=== PATIENT | female | born 1965 | race Caucasian/White ===

== ENCOUNTER 2016-12-06 09:34 | Emergency (ER) | payer OTHER ==
[2016-12-06 09:46] VITALS: BP 138/100; PULSE 83; TEMP 99.1; BMI 21.7
[2016-12-06] MEDS ORDERED: IBUPROFEN 600 MG TABLET (FP) PO ONE ×2 (10:32→10:38)
--- NOTE | 2016-12-06 11:31 | PDOC ---
History of Present Illness - General Chief Complaint: Cold Symptoms Stated Complaint: FLU LIKE SYMPTOMS Time Seen by Provider: 12/06/16 10:22 History Source: Patient Exam Limitations: No Limitations Past History - Past Medical History Allergies/Adverse Reactions: Allergies Allergy/AdvReac Type Severity Reaction Status Date / Time No Known Allergies Allergy Verified 12/06/16 09:44 Home Medications: Ambulatory Orders Amoxicillin - [Amoxicillin 875mg Tablet -] 875 mg PO BID #20 tablet 12/06/16 Fluticasone Prop 0.05% Nasal [Flonase -] 1 - 2 spray NS DAILY #1 spray.pump Ibuprofen 800 mg PO TID PRN #20 tablet 12/06/16 GI Disorders: Yes (ACID REFLUX) - Surgical History Lung Surgery: Yes (SPONTANEOUS PNEUMO.) - Psycho/Social/Smoking Cessation Hx Anxiety: No Suicidal Ideation: No Smoking Status: Yes Smoking History: Current every day smoker Have you smoked in the past 12 months: Yes Number of Cigarettes Smoked Daily: 20 Information on smoking cessation initiated: No 'Breaking Loose' booklet given: 06/21/16 Hx Alcohol Use: No Drug/Substance Use Hx: No Substance Use Type: None *Physical Exam - Vital Signs Last Vital Signs Temp Pulse Resp BP Pulse Ox 99.1 F 83 20 138/100 99 12/06/16 09:39 12/06/16 09:39 12/06/16 09:39 12/06/16 09:39 12/06/16 09:39 - Physical Exam General Appearance: Yes: Nourished, Appropriately Dressed HEENT: positive: EOMI, LEN, TMs Normal, Pharyngeal Erythema, Nasal Congestion, Sinus Tenderness Neck: positive: Supple. negative: Lymphadenopathy (R), Lymphadenopathy (L) Respiratory/Chest: positive: Lungs Clear, Normal Breath Sounds Cardiovascular: positive: Regular Rhythm, Regular Rate Musculoskeletal: positive: Normal Inspection Extremity: positive: Normal Capillary Refill, Normal Inspection, Normal Range of Motion Integumentary: positive: Normal Color, Dry, Warm Neurologic: positive: Fully Oriented, Alert, Normal Mood/Affect, Normal Response , Motor Strength 5/5 ED Treatment Course - ADDITIONAL ORDERS Additional order review: 12/06/16 10:32 Group A Strep Rapid Antigen - Final Throat - Medications Given in the ED: ED Medications Discontinued Medications Generic Name Dose Route Start Last Admin Trade Name Freq PRN Reason Stop Dose Admin Ibuprofen 600 mg 12/06/16 10:32 12/06/16 10:45 Motrin - PO 12/06/16 10:33 600 mg ONCE ONE Administration Medical Decision Making - Medical Decision Making 12/06/16 11:38 cc: sinus pressure, headache nasal discharge, sore throat will check for strep most likely acute sinusitus, OTC meds not helping, pt is a smoker states thick nasal discharge *DC/Admit/Observation/Transfer Diagnosis at time of Disposition: Sinusitis Qualifiers: Sinusitis location: frontal Chronicity: acute Recurrence: non-recurrent Qualified Code(s): J01.10 - Acute frontal sinusitis, unspecified - Discharge Dispostion Disposition: HOME Condition at time of disposition: Good - Prescriptions Prescriptions: Amoxicillin - [Amoxicillin 875mg Tablet -] 875 mg PO BID #20 tablet Fluticasone Prop 0.05% Nasal [Flonase -] 1 - 2 spray NS DAILY #1 spray.pump Ibuprofen 800 mg PO TID PRN #20 tablet PRN Reason: Fever Or Pain - Referrals Referrals: Lux Kim MD [Primary Care Provider] - Brandon Acharya MD [Staff Physician] - - Patient Instructions Additional Instructions: take Amoxicllin as directed for sinus infection use flonase nasal spray to help with sinus pressure and congestion (do not use if it makes your headache worse) take ibuprofen 800mg every 6-8hrs for pain, chills body aches follow with the ENT doctor if any worsening symptoms
== END 2016-12-06 11:30 | disposition home or self-care (01) ==
LOC: JERFT 09:34 → JER 09:34 → JERFT 11:30
DX: J01.10 Acute frontal sinusitis, unspecified (principal); F17.210 Nicotine dependence, cigarettes, uncomplicated; K21.9 Gastro-esophageal reflux disease without esophagitis
CPT/HCPCS: 87070; 87430; 99281-25

== ENCOUNTER 2017-01-11 13:33 | Emergency (ER) | payer OTHER ==
[2017-01-11 13:51] VITALS: BMI 23.8
[2017-01-11 14:44] LABS: BASOPHIL 0.7 % (0-2.0); EOSINOPHIL 1.5 % (0-4.5); MCH 34.2 pg (25.7-33.7); MEAN CELL VOLUME 100.4 fl (80-96); MEAN PLT VOLUME 8.3 fl (7.5-11.1); NEUTROPHILS 68.4 % (42.8-82.8); PLATELET COUNT 214 K/MM3 (134-434); RDW 13.2 % (11.6-15.6); WHITE BLOOD COUNT 9.9 K/mm3 (4.0-10.0)
--- NOTE | 2017-01-11 15:01 | EKG ---
Test Reason : Blood Pressure : / mmHG Vent. Rate : 070 BPM Atrial Rate : 070 BPM P-R Int : 148 ms QRS Dur : 122 ms QT Int : 428 ms P-R-T Axes : 071 -39 020 degrees QTc Int : 462 ms SINUS RHYTHM WITH PREMATURE ATRIAL COMPLEXES BIATRIAL ENLARGEMENT LEFT AXIS DEVIATION RIGHT BUNDLE BRANCH BLOCK SEPTAL INFARCT , AGE UNDETERMINED ABNORMAL ECG NO PREVIOUS ECGS AVAILABLE Confirmed by ELOISA MCDOWELL MD ([id number]) on 01/11/2017 3:01:10 PM Referred By: Confirmed By:ELOISA MCDOWELL MD
[2017-01-11 15:02] LABS: ALBUMIN 4.1 g/dl (3.4-5.0); ALK PHOS 97 U/L (45-117); ANION GAP 8 (8-16); BILIRUBIN,TOTAL 0.5 mg/dL (0.2-1.0); CALCIUM 9.2 mg/dL (8.5-10.1); CO2 30 mmol/L (21-32); GLUCOSE,RANDOM 95 mg/dL (74-106); SGPT/ALT 21 U/L (12-78); TOT PROT 7.9 g/dl (6.4-8.2)
[2017-01-11 15:04] LABS: TROPONIN I < 0.02 ng/ml (0.00-0.05)
[2017-01-11 15:08] LABS: SGOT/AST 43 U/L (15-37)
[2017-01-11 15:16] LABS: INR 0.96 (0.82-1.09); PROTHROMBIN TIME (PATIENT) 10.5 SEC (9.98-11.88)
--- NOTE | 2017-01-11 15:31 | PDOC ---
History of Present Illness - History of Present Illness Initial Comments: 01/11/17 15:38 Patient is a 51 year old female with significant medical hx of GERD who is presenting to the ED with heart palpitations since yesterday. Patient complains of palpitations that began yesterday morning. She reports that they are worse in the morning and relieve as the day goes on. Today the patient called her specifications checker's office and she was referred to the ED. Patient states she's had this in the past and has been followed with a holter monitor. Denies chest pain, nausea, vomiting, shortness of breath, and diaphoresis. Social Hx: Pack a day smoker, daily ETOH use, denies recreational drug use. PMD: Lux Kim MD <Eugenia Becerra - Last Filed: 01/11/17 15:38> <Danilo Pires - Last Filed: 01/11/17 15:50> - General Chief Complaint: Palpitations Stated Complaint: PALPITATIONS Time Seen by Provider: 01/11/17 13:39 Past History <Eugenia Becerra - Last Filed: 01/11/17 15:38> - Past Medical History GI Disorders: Yes (ACID REFLUX) - Surgical History Lung Surgery: Yes (SPONTANEOUS PNEUMO.) - Psycho/Social/Smoking Cessation Hx Anxiety: No Suicidal Ideation: No Smoking Status: Yes Smoking History: Current every day smoker Have you smoked in the past 12 months: Yes Number of Cigarettes Smoked Daily: 20 Information on smoking cessation initiated: No 'Breaking Loose' booklet given: 06/21/16 Hx Alcohol Use: Yes (SOCIAL) Drug/Substance Use Hx: No Substance Use Type: None <Danilo Pires - Last Filed: 01/11/17 15:50> - Past Medical History Allergies/Adverse Reactions: Allergies Allergy/AdvReac Type Severity Reaction Status Date / Time No Known Allergies Allergy Verified 12/06/16 09:44 Home Medications: Ambulatory Orders Omeprazole 20 mg PO DAILY 01/11/17 Review of Systems - Review of Systems Comments:: 01/11/17 15:42 GENERAL/CONSTITUTIONAL: No fever or chills. No weakness. HEAD, EYES, EARS, NOSE AND THROAT: No change in vision. No ear pain or discharge. No sore throat. CARDIOVASCULAR: Palpitations. No chest pain or shortness of breath. RESPIRATORY: No cough, wheezing, or hemoptysis. GASTROINTESTINAL: No nausea, vomiting, diarrhea or constipation. GENITOURINARY: No dysuria, frequency, or change in urination. MUSCULOSKELETAL: No joint or muscle swelling or pain. No neck or back pain. SKIN: No rash NEUROLOGIC: No headache, vertigo, loss of consciousness, or change in strength/ sensation. <Eugenia Becerra - Last Filed: 01/11/17 15:38> *Physical Exam - Vital Signs Last Vital Signs Temp Pulse Resp BP Pulse Ox 98.0 F 74 18 192/103 100 01/11/17 13:49 01/11/17 13:49 01/11/17 13:49 01/11/17 13:49 01/11/17 13:49 - Physical Exam Comments: 01/11/17 15:43 GENERAL: Awake, alert, and fully oriented, in no acute distress HEAD: No signs of trauma EYES: PERRLA, EOMI, sclera anicteric, conjunctiva clear ENT: Auricles normal inspection, hearing grossly normal, nares patent, oropharynx clear without exudates. Moist mucosa NECK: Normal ROM, supple, no lymphadenopathy, JVD, or masses LUNGS: Breath sounds equal, clear to auscultation bilaterally. No wheezes, and no crackles HEART: Regular rate and rhythm, normal S1 and S2, no murmurs, rubs or gallops ABDOMEN: Soft, nontender, normoactive bowel sounds. No guarding, no rebound. No masses EXTREMITIES: Normal range of motion, no edema. No clubbing or cyanosis. No cords, erythema, or tenderness NEUROLOGICAL: Cranial nerves II through XII grossly intact. Normal speech, normal gait SKIN: Warm, Dry, normal turgor, no rashes or lesions noted. ENDOCRINE: No increased thirst. No abnormal weight change. HEMATOLOGIC/LYMPHATIC: No anemia, easy bleeding, or history of blood clots. ALLERGIC/IMMUNOLOGIC: No hives or skin allergy. <Eugenia Becerra - Last Filed: 01/11/17 15:38> - Vital Signs Last Vital Signs Temp Pulse Resp BP Pulse Ox 98.0 F 74 18 192/103 100 01/11/17 13:49 01/11/17 13:49 01/11/17 13:49 01/11/17 13:49 01/11/17 13:49 <Danilo Pires - Last Filed: 01/11/17 15:50> Heart Score/ECG Review #1 01/11/17 15:34 Sinus rhythm at 70 bpm with premature atrial complexes Biatrial enlargement Left axis deviation Right bundle branch block Septal infarct, age undetermined Abnormal ECG No previous ECGs available Confirmed By: Aamir Landrum MD <Eugenia Becerra - Last Filed: 01/11/17 15:38> ED Treatment Course - LABORATORY CBC & Chemistry Diagram: 01/11/17 14:15 01/11/17 14:15 - ADDITIONAL ORDERS Additional order review: Laboratory Results 01/11/17 14:15 Sodium 138 Potassium 4.8 D Chloride 100 Carbon Dioxide 30 Anion Gap 8 BUN 18 D Creatinine 1.0 Creat Clearance w eGFR 58.93 Random Glucose 95 Calcium 9.2 Total Bilirubin 0.5 AST 43 H D ALT 21 D Alkaline Phosphatase 97 Creatine Kinase 182 D CK-MB (CK-2) < 1.000 Troponin I < 0.02 Total Protein 7.9 Albumin 4.1 01/11/17 14:15 RBC 4.56 MCV 100.4 H MCHC 34.0 RDW 13.2 MPV 8.3 Neutrophils % 68.4 Lymphocytes % 22.1 Monocytes % 7.3 Eosinophils % 1.5 Basophils % 0.7 D - RADIOLOGY Radiograph Interpretation: 01/11/17 15:33 Chest X-Ray Impression: No active disease in chest. Reported By: Mitch Zepeda MD <Eugenia Becerra - Last Filed: 01/11/17 15:38> - LABORATORY CBC & Chemistry Diagram: 01/11/17 14:15 01/11/17 14:15 - ADDITIONAL ORDERS Additional order review: Laboratory Results 01/11/17 14:15 Sodium 138 Potassium 4.8 D Chloride 100 Carbon Dioxide 30 Anion Gap 8 BUN 18 D Creatinine 1.0 Creat Clearance w eGFR 58.93 Random Glucose 95 Calcium 9.2 Total Bilirubin 0.5 AST 43 H D ALT 21 D Alkaline Phosphatase 97 Creatine Kinase 182 D Troponin I < 0.02 Total Protein 7.9 Albumin 4.1 01/11/17 14:15 RBC 4.56 MCV 100.4 H MCHC 34.0 RDW 13.2 MPV 8.3 Neutrophils % 68.4 Lymphocytes % 22.1 Monocytes % 7.3 Eosinophils % 1.5 Basophils % 0.7 D - RADIOLOGY Radiology Studies Ordered: Category Date Time Status CXRPORT [CHEST X-RAY PORTABLE*] [RAD] Stat Radiology 01/11/17 14:04 Completed <Danilo Pires - Last Filed: 01/11/17 15:50> *DC/Admit/Observation/Transfer - Attestations Scribe Attestion: 01/11/17 15:43 Documentation prepared by Eugenia Becerra, acting as certified medical coding specialist for Danilo Pires MD. <Eugenia Becerra - Last Filed: 01/11/17 15:38> - Discharge Dispostion Admit: No - Attestations Physician Attestion: 01/11/17 15:31 I, Dr. Danilo Pires, attest that this document has been prepared under my direction and personally reviewed by me in its entirety. I further attest, that it accurately reflects all work, treatment, procedures and medical decision -making performed by me. <Danilo Pires - Last Filed: 01/11/17 15:50> Diagnosis at time of Disposition: Palpitations - Discharge Dispostion Disposition: HOME Condition at time of disposition: Good - Referrals Referrals: Lux Kim MD [Primary Care Provider] - - Patient Instructions Printed Discharge Instructions: DI for Atypical Chest Pain Additional Instructions: Bailey- All of your tests are negative. Please follow up with your specifications checker by being the first person to call the office tomorrow morning. Return to us if any problems at all. See your doctor later this week or early next week. Return to us if worse or any new symptoms occur. Best- Dr. Danilo Pires
[2017-01-11 16:06] VITALS: BP 142/100; PULSE 82; TEMP 98
== END 2017-01-11 16:08 | disposition home or self-care (01) ==
LOC: JER 13:33
DX: R00.2 Palpitations (principal); K21.9 Gastro-esophageal reflux disease without esophagitis
CPT/HCPCS: 36415; 71010-TC; 80053; 82550; 82553; 84484; 85025; 85610; 93005; 93010; 99284-25

== ENCOUNTER 2017-06-13 08:17 | Observation (INO) | payer OTHER ==
[2017-06-13 08:35] VITALS: TEMP 98.2; BMI 23.8
--- NOTE | 2017-06-13 08:44 | PDOC ---
History of Present Illness - General History Source: Patient - History of Present Illness Timing/Duration: other Severity: moderate Associated Symptoms: denies: chest pain, headaches, nausea/vomiting, shortness of breath <Rell Smiley - Last Filed: 06/13/17 14:07> <Juliet Vallejo - Last Filed: 06/15/17 20:12> - General Chief Complaint: Blood Pressure Problem Stated Complaint: Blood Pressure Problem Time Seen by Provider: 06/13/17 08:26 Past History - Past Medical History GI Disorders: Yes (ACID REFLUX) HTN: Yes - Surgical History Lung Surgery: Yes (SPONTANEOUS PNEUMO.) - Psycho/Social/Smoking Cessation Hx Anxiety: No Suicidal Ideation: No Smoking Status: Yes Smoking History: Current every day smoker Have you smoked in the past 12 months: Yes Number of Cigarettes Smoked Daily: 20 Information on smoking cessation initiated: No 'Breaking Loose' booklet given: 06/21/16 Hx Alcohol Use: No Drug/Substance Use Hx: No Substance Use Type: None <Rell Smiley - Last Filed: 06/13/17 14:07> <Juliet Vallejo - Last Filed: 06/15/17 20:12> - Past Medical History Allergies/Adverse Reactions: Allergies Allergy/AdvReac Type Severity Reaction Status Date / Time No Known Allergies Allergy Verified 06/13/17 08:29 Home Medications: Ambulatory Orders Diltiazem HCl [Cartia Xt] 120 mg PO DAILY 06/13/17 Olmesartan/Hydrochlorothiazide [Benicar Hct 20-12.5 mg Tablet] 1 each PO DAILY PRN 06/13/17 Review of Systems - Review of Systems Constitutional: No: Chills, Fever Respiratory: No: Shortness of Breath Cardiac (ROS): No: Chest Pain, Lightheadedness, Palpitations, Syncope ABD/GI: No: Nausea, Vomiting Neurological: No: Headache, Dizziness <Rell Smiley - Last Filed: 06/13/17 14:07> *Physical Exam - Vital Signs Last Vital Signs Temp Pulse Resp BP Pulse Ox 98.2 F 62 18 179/97 100 06/13/17 08:20 06/13/17 08:20 06/13/17 08:20 06/13/17 08:20 06/13/17 08:20 - Physical Exam General Appearance: Yes: Appropriately Dressed. No: Apparent Distress HEENT: positive: Normal Voice Neck: positive: Supple Respiratory/Chest: positive: Lungs Clear, Normal Breath Sounds. negative: Respiratory Distress Cardiovascular: positive: Regular Rate, S1, S2 Gastrointestinal/Abdominal: positive: Soft. negative: Tender Extremity: positive: Normal Inspection Integumentary: positive: Dry, Warm Neurologic: positive: Fully Oriented, Alert, Normal Mood/Affect <Rell Smiley - Last Filed: 06/13/17 14:07> - Vital Signs Last Vital Signs Temp Pulse Resp BP Pulse Ox 98.2 F 65 18 135/88 100 06/13/17 08:20 06/13/17 13:20 06/13/17 13:20 06/13/17 13:20 06/13/17 13:20 <Juliet Vallejo - Last Filed: 06/15/17 20:12> ED Treatment Course - LABORATORY CBC & Chemistry Diagram: 06/13/17 09:00 06/13/17 09:00 <eRll Smiley - Last Filed: 06/13/17 14:07> - LABORATORY CBC & Chemistry Diagram: 06/13/17 09:00 06/13/17 09:00 - ADDITIONAL ORDERS Additional order review: 06/13/17 09:00 RBC 4.39 MCV 99.7 H MCHC 34.6 RDW 13.5 MPV 8.6 Neutrophils % 65.9 Lymphocytes % 24.1 Monocytes % 7.2 Eosinophils % 1.6 Basophils % 1.2 - Medications Given in the ED: ED Medications Discontinued Medications Generic Name Dose Route Start Last Admin Trade Name Martinez PRN Reason Stop Dose Admin Sodium Chloride 1,000 mls @ 1,000 mls/hr 06/13/17 10:54 06/13/17 10:56 Normal Saline - IV 06/13/17 11:53 1,000 mls/hr ASDIR STA Administration Metoclopramide HCl 10 mg 06/13/17 11:52 06/13/17 12:08 Reglan Injection - IVPUSH 06/13/17 11:53 10 mg ONCE ONE Administration Ondansetron HCl 4 mg 06/13/17 08:54 06/13/17 08:57 Zofran - PO 06/13/17 08:55 4 mg ONCE ONE Administration <Juliet Vallejo - Last Filed: 06/15/17 20:12> Medical Decision Making - Medical Decision Making 06/13/17 08:31 52-year-old female, smoker, hypertension, takes 12.5 mg metoprolol at night, presents with malaise 2 days. Patient states her blood pressure readings last night were elevated, highest 200s over 100. She saw her PMD, Dr. Kim yesterday who gave her Benicar. Patient states she took one dose last night but was not feeling better and that she awoke this am feeling "jittery", diaphoretic and nauseous and when she checked her BP, blood pressure continued to be elevated. States Dr. Kim had also given her cardizem and that she took one dose this a.m but continued to have symptoms, so decided to come to the ED. Of note, patient works as a manufacturing process technician at [employer]. Blood pressure in ER is 170s over 90s. Patient denies chest pain, shortness of breath, headache, dizziness, nausea, vomiting, blurry vision or focal weakness PMD: Dr Kim Cards: Dr Gordillo See exam Malaise in the setting of poorly controlled HTN No resp/chest sxs No neuro sxs BP 170s/90s in ED Rest of exam unremarkable -will check basic labs and discuss dispo w/ PMD 06/13/17 08:55 06/13/17 10:08 Sinus boy to 50s in ED. M/l 2/2 meds (of note, pt wears a fitbit and states since taking a dose of benicar last night and cardizem this am, her heart rate has been low as displayed on her fitbit). Has old RBBB as per pt. Labs unremarkable. Will contact Dr Kim to discuss dispo 06/13/17 10:[address] Kim who states he has since discontinued patient's beta david. States if blood pressure continues to be elevated, can give 1 dose of Benicar in ED and reassess. States if patient not able to go home, to admit to observation under his service 06/13/17 10:31 Pt bradying down to 40s on monitor when asleep. BP now 150/77 on monitor. Will hold off on meds and admit to tele obs. Consult for Dr Yan [facility] 06/13/17 10:49 <Rell Smiley - Last Filed: 06/13/17 14:07> *DC/Admit/Observation/Transfer - Discharge Dispostion Admit: Yes <Rell Smiley - Last Filed: 06/13/17 14:07> - Attestations Physician Attestion: I reviewed the case with the mid-level practitioner and agree with the mid- level practitioner's assessment, diagnosis and disposition. <Juliet Vallejo - Last Filed: 06/15/17 20:12> Diagnosis at time of Disposition: Malaise, Elevated blood pressure reading - Discharge Dispostion Disposition: HOME Condition at time of disposition: Improved - Referrals
[2017-06-13] MEDS ORDERED: ONDANSETRON 4 MG TABLET PO ONE (08:54)
[2017-06-13] MEDS ORDERED: ONDANSETRON *ODT* 4 MG TABLET ONE (08:55)
[2017-06-13 09:13] LABS: BASOPHIL 1.2 % (0-2.0); EOSINOPHIL 1.6 % (0-4.5); MCH 34.5 pg (25.7-33.7); MCHC 34.6 g/dl (32.0-36.0); MEAN CELL VOLUME 99.7 fl (80-96); MEAN PLT VOLUME 8.6 fl (7.5-11.1); NEUTROPHILS 65.9 % (42.8-82.8); PLATELET COUNT 192 K/MM3 (134-434); RDW 13.5 % (11.6-15.6); WHITE BLOOD COUNT 8.5 K/mm3 (4.0-10.0)
[2017-06-13 09:38] LABS: ALBUMIN 4.2 g/dl (3.4-5.0); ANION GAP 9 (8-16); BILIRUBIN,TOTAL 1.3 mg/dL (0.2-1.0); CALCIUM 10.1 mg/dL (8.5-10.1); CO2 27 mmol/L (21-32); CREATININE 1.1 mg/dL (0.55-1.02); GLUCOSE,RANDOM 101 mg/dL (74-106); SGOT/AST 23 U/L (15-37); SGPT/ALT 17 U/L (12-78); TOT PROT 7.6 g/dl (6.4-8.2)
[2017-06-13 09:41] LABS: ALK PHOS 111 U/L (45-117); TROPONIN I < 0.02 ng/ml (0.00-0.05)
[2017-06-13] MEDS ORDERED: SODIUM CHLORIDE 1,000 ML IV STA (10:54)
[2017-06-13 10:55] LABS: URINE APPEARANCE CLEAR; URINE BILIRUBIN NEGATIVE (NEGATIVE); URINE BLOOD NEGATIVE (NEGATIVE); URINE COLOR COLORLESS; URINE GLUCOSE (UA) NEGATIVE (NEGATIVE); URINE KETONE NEGATIVE (NEGATIVE); URINE LEUK ESTERASE NEGATIVE (NEGATIVE); URINE NITRITE NEGATIVE (NEGATIVE); URINE PROTEIN NEGATIVE (NEGATIVE); URINE UROBILINOGEN NEGATIVE mg/dL (0.2-1.0)
[2017-06-13] MEDS ORDERED: METOCLOPRAMIDE HCL INJECTION 10 MG/2 ML VIAL IVPUSH ONE (11:52)
[2017-06-13] MEDS ORDERED: METOCLOPRAMIDE HCL INJECTION 10 MG/2 ML VIAL ONE (12:00)
--- NOTE | 2017-06-13 12:59 | EKG ---
Test Reason : Blood Pressure : / mmHG Vent. Rate : 050 BPM Atrial Rate : 050 BPM P-R Int : 142 ms QRS Dur : 128 ms QT Int : 454 ms P-R-T Axes : 080 -28 020 degrees QTc Int : 413 ms SINUS BRADYCARDIA RIGHT BUNDLE BRANCH BLOCK ABNORMAL ECG WHEN COMPARED WITH ECG OF 11-JAN-2017 13:46, PREMATURE ATRIAL COMPLEXES ARE NO LONGER PRESENT Confirmed by CAM CHAMBERLAIN MD ([id number]) on 06/13/2017 12:59:02 PM Referred By: Confirmed By:CAM CHAMBERLAIN MD
--- NOTE | 2017-06-13 13:01 | EKG ---
Test Reason : Blood Pressure : / mmHG Vent. Rate : 049 BPM Atrial Rate : 049 BPM P-R Int : 154 ms QRS Dur : 112 ms QT Int : 448 ms P-R-T Axes : 078 -32 004 degrees QTc Int : 404 ms SINUS BRADYCARDIA WITH PREMATURE ATRIAL COMPLEXES POSSIBLE LEFT ATRIAL ENLARGEMENT LEFT AXIS DEVIATION INCOMPLETE RIGHT BUNDLE BRANCH BLOCK SEPTAL INFARCT , AGE UNDETERMINED ABNORMAL ECG WHEN COMPARED WITH ECG OF 13-JUN-2017 09:14, PREMATURE ATRIAL COMPLEXES ARE NOW PRESENT SEPTAL INFARCT IS NOW PRESENT Confirmed by CINTIA SEVILLA, CAM ([id number]) on 06/13/2017 1:01:17 PM Referred By: Confirmed By:CAM CHAMBERLAIN MD
--- NOTE | 2017-06-13 14:10 | PDOC ---
*Physical Exam - Vital Signs Last Vital Signs Temp Pulse Resp BP Pulse Ox 98.2 F 65 18 135/88 100 06/13/17 08:20 06/13/17 13:20 06/13/17 13:20 06/13/17 13:20 06/13/17 13:20 - Physical Exam General Appearance: Yes: Appropriately Dressed. No: Apparent Distress HEENT: positive: Normal Voice Neck: positive: Supple Respiratory/Chest: positive: Lungs Clear, Normal Breath Sounds. negative: Respiratory Distress Cardiovascular: positive: Regular Rate, S1, S2 Extremity: positive: Normal Inspection Integumentary: positive: Dry, Warm Neurologic: positive: Alert, Normal Mood/Affect. negative: Fully Oriented ED Treatment Course - LABORATORY CBC & Chemistry Diagram: 06/13/17 09:00 06/13/17 09:00 - ADDITIONAL ORDERS Additional order review: Laboratory Results 06/13/17 09:00 Sodium 135 L Potassium 3.8 D Chloride 99 Carbon Dioxide 27 Anion Gap 9 BUN 13 D Creatinine 1.1 H Creat Clearance w eGFR 52.58 Random Glucose 101 Calcium 10.1 Total Bilirubin 1.3 H D AST 23 D ALT 17 Alkaline Phosphatase 111 Creatine Kinase 96 Troponin I < 0.02 Total Protein 7.6 Albumin 4.2 06/13/17 09:00 RBC 4.39 MCV 99.7 H MCHC 34.6 RDW 13.5 MPV 8.6 Neutrophils % 65.9 Lymphocytes % 24.1 Monocytes % 7.2 Eosinophils % 1.6 Basophils % 1.2 - RADIOLOGY Radiology Studies Ordered: Category Date Time Status CHEST X-RAY PORTABLE* [RAD] Stat Radiology 06/13/17 08:56 Completed - Medications Given in the ED: ED Medications Discontinued Medications Generic Name Dose Route Start Last Admin Trade Name Freq PRN Reason Stop Dose Admin Sodium Chloride 1,000 mls @ 1,000 mls/hr 06/13/17 10:54 06/13/17 10:56 Normal Saline - IV 06/13/17 11:53 1,000 mls/hr ASDIR STA Administration Metoclopramide HCl 10 mg 06/13/17 11:52 06/13/17 12:08 Reglan Injection - IVPUSH 06/13/17 11:53 10 mg ONCE ONE Administration Ondansetron HCl 4 mg 06/13/17 08:54 06/13/17 08:57 Zofran - PO 06/13/17 08:55 4 mg ONCE ONE Administration Medical Decision Making - Medical Decision Making 06/13/17 14:08 06/13/17 14:05 Patient requesting to be discharged as she feels better. Blood pressure is 121/ 78 with heart rate of 67. ED attending aware. Patient discharged to continue taking Cardizem and Benicar as per Dr Kim and to follow up closely with Sully 06/13/17 14:07 06/13/17 14:09 *DC/Admit/Observation/Transfer Diagnosis at time of Disposition: Malaise, Elevated blood pressure reading - Discharge Dispostion Disposition: HOME Condition at time of disposition: Improved
[2017-06-13 14:54] VITALS: BP 134/74; PULSE 43
== END 2017-06-13 19:40 | disposition home or self-care (01) ==
LOC: JER 08:17 → JERBED 10:27
PROVIDERS: ADMIT Family Medicine; ATTEND Family Medicine
PROC: 3E033GC Introduction of Other Therapeutic Substance into Peripheral Vein, Percutaneous Approach (ICD-10-PCS; principal; 2017-06-13)
PROC: 3E0337Z Introduction of Electrolytic and Water Balance Substance into Peripheral Vein, Percutaneous Approach (ICD-10-PCS; 2017-06-13)
DX: R53.81 Other malaise (principal); I10 Essential (primary) hypertension; F17.210 Nicotine dependence, cigarettes, uncomplicated
CPT/HCPCS: 36415; 71010-TC; 80053; 81003; 82550; 84484; 85025; 93005; 93010; 99283-25; G0378

== ENCOUNTER 2017-06-18 10:54 | Emergency (ER) | payer OTHER ==
[2017-06-18 11:01] VITALS: BP 137/90; PULSE 60; TEMP 97.8; BMI 22.3
--- NOTE | 2017-06-18 12:01 | PDOC ---
History of Present Illness - General Chief Complaint: Tremors Stated Complaint: BLOOD PRESSURE PROBLEM Time Seen by Provider: 06/18/17 11:45 History Source: Patient Exam Limitations: No Limitations - History of Present Illness Initial Comments: 06/18/17 12:01 Came for evaluation of sensate changes and mild anxiety. Patient has knowledge when blood pressure is labile and woke up this morning and felt that it was. Came to this emergency department after taking her medications in the morning within normal tense of the elevated pressure at 130/ 90. has been utilizing a when necessary type blood pressure dosage per instruction of Dr. lin. yesterday took an extra dose of Benicar per his instruction if hypertensive sensations occur. has had lability and sensation changes over the past week. had some testing done by and has not received those results which included cortisol levels and endocrine levels. Timing/Duration: unsure Severity: mild Past History - Travel Traveled outside of the country in the last 30 days: No Close contact w/someone who was outside of country & ill: No - Past Medical History Allergies/Adverse Reactions: Allergies Allergy/AdvReac Type Severity Reaction Status Date / Time No Known Allergies Allergy Verified 06/13/17 08:29 Home Medications: Ambulatory Orders Diltiazem HCl [Cartia Xt] 120 mg PO DAILY 06/13/17 Olmesartan/Hydrochlorothiazide [Benicar Hct 20-12.5 mg Tablet] 1 each PO DAILY PRN 06/13/17 GI Disorders: Yes (ACID REFLUX) HTN: Yes - Surgical History Lung Surgery: Yes (SPONTANEOUS PNEUMO.) - Immunization History Immunization Up to Date: Yes - Psycho/Social/Smoking Cessation Hx Anxiety: No Suicidal Ideation: No Smoking Status: Yes Smoking History: Current every day smoker Have you smoked in the past 12 months: Yes Number of Cigarettes Smoked Daily: 20 Information on smoking cessation initiated: No 'Breaking Loose' booklet given: 06/21/16 Hx Alcohol Use: No Drug/Substance Use Hx: No Substance Use Type: None Review of Systems - Review of Systems Able to Perform ROS?: Yes Is the patient limited Nigerien proficient: Yes Constitutional: Yes: Symptoms Reported, See HPI, Loss of Appetite, Malaise. No : Chills, Fever HEENTM: Yes: See HPI. No: Symptoms Reported Respiratory: Yes: See HPI. No: Symptoms reported, Cough ABD/GI: Yes: Symptoms Reported, See HPI Neurological: Yes: Symptoms reported, See HPI, Headache. No: Numbness All Other Systems: Reviewed and Negative *Physical Exam - Vital Signs Last Vital Signs Temp Pulse Resp BP Pulse Ox 97.8 F 60 16 137/90 100 06/18/17 10:56 06/18/17 10:56 06/18/17 10:56 06/18/17 10:56 06/18/17 10:56 - Physical Exam General Appearance: Yes: Nourished, Appropriately Dressed. No: Apparent Distress HEENT: positive: LEN, Normal ENT Inspection, TMs Normal, Pharynx Normal Neck: positive: Trachea midline, Supple. negative: Tender Respiratory/Chest: positive: Lungs Clear, Normal Breath Sounds Musculoskeletal: positive: Normal Inspection. 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 Laboratory work show elevations of both cortisol and thyroid levels. Encouraged patient to follow up with Dr. haywood for further evaluation and potential changes in when necessary medications including blood pressure meds. *DC/Admit/Observation/Transfer Diagnosis at time of Disposition: Malaise, Elevated blood pressure reading - Discharge Dispostion Disposition: HOME Condition at time of disposition: Stable Admit: No - Patient Instructions Printed Discharge Instructions: Treatments for High Blood Pressure: More Than Just Taking a Pill Additional Instructions: see MATILDE Connors jannie for review of labs and possible re-regulating medications. - Post Discharge Activity Work/School Note: Back to Work
== END 2017-06-18 12:11 | disposition home or self-care (01) ==
LOC: JERFT 10:54
DX: I10 Essential (primary) hypertension (principal); K21.9 Gastro-esophageal reflux disease without esophagitis; F17.210 Nicotine dependence, cigarettes, uncomplicated
CPT/HCPCS: 99281-25

== ENCOUNTER 2017-09-13 17:14 | Emergency (ER) | payer OTHER ==
[2017-09-13 17:38] VITALS: BP 148/67; PULSE 68; TEMP 97.8; BMI 22.3
--- NOTE | 2017-09-13 18:01 | PDOC ---
History of Present Illness - General Chief Complaint: Wound Stated Complaint: CYST Time Seen by Provider: 09/13/17 17:42 History Source: Patient Exam Limitations: No Limitations - History of Present Illness Initial Comments: 09/17/17 08:28 52 yr female with c/o ingrown hair to bikini area . no fever or chills. Timing/Duration: reports: constant Severity: Yes: mild Location: reports: other Respiratory Risk Factors: reports: no cause identified Past History - Past Medical History Allergies/Adverse Reactions: Allergies Allergy/AdvReac Type Severity Reaction Status Date / Time No Known Allergies Allergy Verified 09/13/17 17:34 Home Medications: Ambulatory Orders Metoprolol Succinate [Toprol Xl -] 25 mg PO DAILY 09/13/17 Sulfamethoxazole/Trimethoprim [Bactrim Ds Tablet] 1 each PO BID #10 tablet 09/13 GI Disorders: Yes (ACID REFLUX) HTN: Yes - Surgical History Lung Surgery: Yes (SPONTANEOUS PNEUMO.) - Immunization History Immunization Up to Date: Yes - Suicide/Smoking/Psychosocial Hx Smoking Status: Yes Smoking History: Current every day smoker Have you smoked in the past 12 months: Yes Number of Cigarettes Smoked Daily: 20 Information on smoking cessation initiated: No 'Breaking Loose' booklet given: 06/21/16 Hx Alcohol Use: Yes Drug/Substance Use Hx: No Substance Use Type: None Review of Systems - Review of Systems Able to Perform ROS?: Yes Is the patient limited Lithuanian proficient: No Constitutional: No: Symptoms Reported HEENTM: No: Symptoms Reported Respiratory: No: Symptoms reported Cardiac (ROS): No: Symptoms Reported ABD/GI: No: Symptoms Reported : No: Symptoms Reported Musculoskeletal: No: Symptoms Reported Integumentary: Yes: Symptoms Reported *Physical Exam - Vital Signs Last Vital Signs Temp Pulse Resp BP Pulse Ox 97.8 F 68 18 148/67 100 09/13/17 17:15 09/13/17 17:15 09/13/17 17:15 09/13/17 17:15 09/13/17 17:15 - Physical Exam General Appearance: Yes: Nourished, Appropriately Dressed HEENT: positive: EOMI, LEN Integumentary: positive: Normal Color, Dry, Warm, Other (right inguinal area with ingrown hair, no abscess or fluctuance no surrounding cellultius ) Neurologic: positive: Fully Oriented, Alert, Normal Mood/Affect, Normal Response , Motor Strength 03/23 Medical Decision Making - Medical Decision Making 09/17/17 08:30 cc: ingrown hair pt requesting bactrim, states she has had this before and the antibiotics " cure it up" pt does not require I&D at this point, however pt states she has had them before same area will place on bactrim and follow up as needed warm compresses, warm soaks pt understands the dc inst well. all questions asked and answered. *DC/Admit/Observation/Transfer Diagnosis at time of Disposition: Ingrown hair - Discharge Dispostion Disposition: HOME Condition at time of disposition: Good - Prescriptions Prescriptions: Sulfamethoxazole/Trimethoprim [Bactrim Ds Tablet] 1 each PO BID #10 tablet - Referrals Referrals: Lux Kim MD [Primary Care Provider] - - Patient Instructions Additional Instructions: warm compresses take the antibiotics as directed use Dial antibacterial soap follow with your doctor if worse
== END 2017-09-13 18:07 | disposition home or self-care (01) ==
LOC: JERFT 17:14
DX: L73.1 Pseudofolliculitis barbae (principal); I10 Essential (primary) hypertension; K21.9 Gastro-esophageal reflux disease without esophagitis; F17.210 Nicotine dependence, cigarettes, uncomplicated
CPT/HCPCS: 99281-25

== ENCOUNTER 2018-02-12 09:02 | Emergency (ER) | payer OTHER ==
[2018-02-12 09:14] VITALS: BP 118/77; PULSE 92; TEMP 100.5; BMI 22.3
[2018-02-12] MEDS ORDERED: IBUPROFEN 400 MG TABLET (FP) PO ONE ×2 (09:36→09:38)
--- NOTE | 2018-02-12 09:37 | PDOC ---
History of Present Illness - General Chief Complaint: Cold Symptoms Stated Complaint: EMPLOYEE, CONGESTED Time Seen by Provider: 02/12/18 09:21 History Source: Patient Exam Limitations: No Limitations - History of Present Illness Initial Comments: 02/12/18 09:35 Patient is a 52-year-old female, history of hypertension on ramipril presents for generalized body aches, headache, chills since yesterday. Most cough, no chest pain, no nausea vomiting or diarrhea. Allergies: No known allergies Family History: Non-contributory Social History: Daily smoker, no alcohol or IV drug use. Review of Systems GENERAL/CONSTITUTIONAL: [Tactile fever and chills. No weakness. No weight change.] HEAD, EYES, EARS, NOSE AND THROAT: [No change in vision. No ear pain or discharge. No sore throat. ] CARDIOVASCULAR: [No chest pain or shortness of breath.] RESPIRATORY: [Moist cough, no wheezing, or hemoptysis.] GASTROINTESTINAL: [No nausea, vomiting, diarrhea or constipation. No rectal bleeding.] GENITOURINARY: [No dysuria, frequency, or change in urination.] MUSCULOSKELETAL: [No joint or muscle swelling or pain. No neck or back pain.] SKIN AND BREASTS: [No rash or easy bruising.] NEUROLOGIC: [Frontal headache, no vertigo, loss of consciousness, or loss of sensation.] PSYCHIATRIC: [No depression or anxiety.] ENDOCRINE: [No increased thirst. No abnormal weight change.] HEMATOLOGIC/LYMPHATIC: [No anemia, easy bleeding, or history of blood clots.] ALLERGIC/IMMUNOLOGIC: [No hives or skin allergy. No latex allergy.] Physical Exam: GENERAL: [The patient is awake, alert, and fully oriented, in no acute distress. ] HEAD: [Normal with no signs of trauma.] EYES: [Pupils equal, round and reactive to light, extraocular movements intact, sclera anicteric, conjunctiva clear.] ENT: [Ears normal, nares patent, oropharynx clear without exudates. Moist mucous membranes. No uvula deviation] NECK: [Normal range of motion, supple without lymphadenopathy, JVD, or masses.] LUNGS: [Rhonchi cleared with cough, no wheezing no crackles] HEART: [Regular rate and rhythm, normal S1 and S2 without murmur, rub or gallop. ] ABDOMEN: [Soft, nontender, normoactive bowel sounds. No guarding, no rebound. No masses. No bruising or abrasions] RECTAL : [Guaiac negative, normal rectal tone.] MUSCULOSKELETAL: [Normal range of motion, no edema. No clubbing or cyanosis. No cords, erythema, or tenderness. No CVA Tenderness with fist.] NEUROLOGICAL: [Cranial nerves II through XII grossly intact. Normal speech, normal gait.] PSYCH: [Normal mood, normal affect.] SKIN: [Warm, Dry, normal turgor, no rashes or lesions noted.] 02/12/18 10:10 Past History - Past Medical History Allergies/Adverse Reactions: Allergies Allergy/AdvReac Type Severity Reaction Status Date / Time No Known Allergies Allergy Verified 02/12/18 09:11 Home Medications: Ambulatory Orders Metoprolol Succinate [Toprol XL -] 25 mg PO DAILY 09/13/17 Azithromycin [Zithromax 250mg Tablets -] 250 mg PO UTDICT #6 tab 02/12/18 COPD: No GI Disorders: Yes (ACID REFLUX) HTN: Yes - Surgical History Lung Surgery: Yes (SPONTANEOUS PNEUMO.) - Immunization History Immunization Up to Date: Yes - Suicide/Smoking/Psychosocial Hx Smoking Status: Yes Smoking History: Current every day smoker Have you smoked in the past 12 months: Yes Number of Cigarettes Smoked Daily: 20 Information on smoking cessation initiated: No 'Breaking Loose' booklet given: 06/21/16 Hx Alcohol Use: Yes Drug/Substance Use Hx: No Substance Use Type: None *Physical Exam - Vital Signs Last Vital Signs Temp Pulse Resp BP Pulse Ox 100.5 F H 92 H 17 118/77 98 02/12/18 09:11 02/12/18 09:11 02/12/18 09:11 02/12/18 09:11 02/12/18 09:11 Medical Decision Making - Medical Decision Making 02/12/18 09:36 A/P: Patient with influenza-type illness, current temperature is 100.5 Motrin given rapid influenza sent. 02/12/18 10:10 Influenza is negative, patient is a smoker with productive cough. Will discharge on azithromycin. Follow-up with PMD if symptoms persist in 3 days. Increase fluid. I discussed the physical exam findings, ancillary test results and final diagnoses with the patient. I answered all of the patient's questions. The patient was satisfied with the care received and felt comfortable with the discharge plan and treatment plan. The patient will call to arrange follow-up and will return to the Emergency Department with any new, persistant or worsening symptoms. 02/12/18 10:11 *DC/Admit/Observation/Transfer Diagnosis at time of Disposition: Upper respiratory infection Qualifiers: URI type: unspecified URI Qualified Code(s): J06.9 - Acute upper respiratory infection, unspecified - Discharge Dispostion Disposition: HOME Condition at time of disposition: Stable Admit: No - Prescriptions Prescriptions: Azithromycin [Zithromax 250mg Tablets -] 250 mg PO UTDICT #6 tab - Referrals Referrals: Lux Kim MD [Primary Care Provider] - - Patient Instructions Printed Discharge Instructions: Acute Bronchitis Additional Instructions: Keep head of bed elevated 45 when sleeping Antibiotics as ordered until completed Cool air humidifier Motrin for fever greater than 101 Followup in the primary care doctor's office in 2 days for evaluation. If any respiratory distress, increased cough, inability to drink, increased wheezing please return immediately to emergency department. - Post Discharge Activity Forms/Work/School Notes: Back to Work
== END 2018-02-12 10:20 | disposition home or self-care (01) ==
LOC: JERFT 09:02
DX: J06.9 Acute upper respiratory infection, unspecified (principal); I10 Essential (primary) hypertension; K21.9 Gastro-esophageal reflux disease without esophagitis
CPT/HCPCS: 87804; 99281-25

== ENCOUNTER 2018-05-03 15:28 | Emergency (ER) | payer OTHER ==
[2018-05-03 15:34] VITALS: BP 120/73; PULSE 81; TEMP 98; BMI 22.3
--- NOTE | 2018-05-03 15:51 | PDOC ---
History of Present Illness - General Chief Complaint: Cold Symptoms Stated Complaint: SINUS INFECTON Time Seen by Provider: 05/03/18 15:45 History Source: Patient Exam Limitations: No Limitations - History of Present Illness Initial Comments: 05/03/18 15:55 Complaints of sinus drainage, causing sore throat pain and congestion. States onset was a couple days ago but is progressively worsening. [facility] has seasonal bronchitis which progressively worsens to a bad chest cold. Timing/Duration: reports: getting worse Severity: reports: mild, moderate Associated Symptoms: reports: cough, headache, nasal congestion, nasal drainage , sore throat. denies: fever/chills Past History - Travel Traveled outside of the country in the last 30 days: No Close contact w/someone who was outside of country & ill: No - Past Medical History Allergies/Adverse Reactions: Allergies Allergy/AdvReac Type Severity Reaction Status Date / Time No Known Allergies Allergy Verified 05/03/18 15:31 Home Medications: Ambulatory Orders Metoprolol Succinate [Toprol XL -] 25 mg PO DAILY 09/13/17 Azithromycin [Zithromax -] 250 mg PO UTDICT #6 tab 05/03/18 COPD: No GI Disorders: Yes (ACID REFLUX) HTN: Yes - Surgical History Lung Surgery: Yes (SPONTANEOUS PNEUMO.) - Immunization History Immunization Up to Date: Yes - Suicide/Smoking/Psychosocial Hx Smoking Status: Yes Smoking History: Current every day smoker Have you smoked in the past 12 months: Yes Number of Cigarettes Smoked Daily: 20 Information on smoking cessation initiated: No 'Breaking Loose' booklet given: 06/21/16 Hx Alcohol Use: Yes Drug/Substance Use Hx: No Substance Use Type: None Review of Systems - Review of Systems Able to Perform ROS?: Yes Is the patient limited South Korean proficient: Yes Constitutional: Yes: Symptoms Reported, See HPI, Malaise. No: Fever HEENTM: Yes: Symptoms Reported, See HPI, Nose Pain, Nose Congestion, Throat Pain Respiratory: Yes: Symptoms reported, See HPI, Cough. No: Wheezing Musculoskeletal: No: Symptoms Reported All Other Systems: Reviewed and Negative *Physical Exam - Vital Signs Last Vital Signs Temp Pulse Resp BP Pulse Ox 98 F 81 18 120/73 100 05/03/18 15:31 05/03/18 15:31 05/03/18 15:31 05/03/18 15:31 05/03/18 15:31 - Physical Exam General Appearance: Yes: Nourished, Appropriately Dressed, Apparent Distress, Mild Distress HEENT: positive: LEN, TMs Normal, Rhinorrhea (congested but landmarks easily visualized), Sinus Tenderness Neck: positive: Supple. negative: Lymphadenopathy (R), Lymphadenopathy (L) Respiratory/Chest: positive: Lungs Clear, Normal Breath Sounds. negative: Chest Tender, Rhonchi, Stridor, Wheezing Gastrointestinal/Abdominal: positive: Normal Bowel Sounds, Soft. 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, Fully Oriented, Alert, Normal Mood/ Affect, Normal Response, Motor Strength 03/23 Progress Note - Progress Note Progress Note: bronchitis- will treat with ZIthromax *DC/Admit/Observation/Transfer Diagnosis at time of Disposition: Bronchitis - Discharge Dispostion Disposition: HOME Condition at time of disposition: Stable Decision to Admit order: No - Referrals Referrals: Lux Kim MD [Primary Care Provider] - - Patient Instructions Printed Discharge Instructions: DI for Acute Bronchitis Additional Instructions: Rest, drink lots of fluids: Teas, water, soups, Pedialyte Saltwater gargles Steamy showers/seem to face break up mucus Avoid contact with others until fevers and cough resolved Lots of handwashing and good hygiene Continue [id number] medications for symptomatic relief Tylenol or Motrin for fever and pain Azithromycin as directed Followup with private physician in one to 2 days as needed Return to emergency department for worsened symptoms, fevers, dehydration - Post Discharge Activity
== END 2018-05-03 16:09 | disposition home or self-care (01) ==
LOC: JERFT 15:28
DX: J20.9 Acute bronchitis, unspecified (principal)
CPT/HCPCS: 99281-25

== ENCOUNTER 2018-06-07 16:16 | Emergency (ER) | payer OTHER ==
--- NOTE | 2018-06-07 17:34 | PDOC ---
Rapid Medical Evaluation Time Seen by Provider: 06/07/18 17:31 Medical Evaluation: Allergies Allergy/AdvReac Type Severity Reaction Status Date / Time No Known Allergies Allergy Verified 05/03/18 15:31 06/07/18 17:32 Pt presents to the ED with a sty to her R lower eyelid. Pt states that it is painful. Denies visual changes Exam: hordeolum to the R lower eyelid, AAOx3 Orders: Nothing Pt to proceed to the ED for further evaluation. Discharge Disposition - Diagnosis Eye pain - Referrals - Patient Instructions - Post Discharge Activity
[2018-06-07 17:43] VITALS: BP 145/75; PULSE 67; TEMP 98.5; BMI 22.4
--- NOTE | 2018-06-07 17:47 | PDOC ---
History of Present Illness - General Chief Complaint: Eye Problem Stated Complaint: PAIN Time Seen by Provider: 06/07/18 17:31 History Source: Patient Exam Limitations: No Limitations - History of Present Illness Initial Comments: CHIEF COMPLAINT: 53 y/o afebrile female c/o painful bump to her right eye since waking up this morning. HISTORY OF PRESENT ILLNESS: Patient does not wear contact lenses or glasses and denies all other symptoms. Vital signs on arrival are within normal limits. REVIEW OF SYSTEMS: GENERAL/CONSTITUTIONAL: No fever/chills. No weakness. No weight change. HEAD, EYES, EARS, NOSE AND THROAT: +painful bump to right eye NEUROLOGIC: No headache, vertigo, loss of consciousness, or loss of sensation. PHYSICAL EXAM: GENERAL: The patient is awake, alert, and fully oriented, in no acute distress. HEAD: Normal with no signs of trauma. ENT: PERRLA. external hordeolum of medial right lower eyelid. Conjunctiva clear. No infra or supra orbital swelling. NEUROLOGICAL: Normal speech, normal gait. CN II-XII grossly intact. SKIN: Warm, dry, normal turgor, no rashes or lesions noted. Past History - Past Medical History Allergies/Adverse Reactions: Allergies Allergy/AdvReac Type Severity Reaction Status Date / Time No Known Allergies Allergy Verified 06/07/18 17:34 Home Medications: Ambulatory Orders Metoprolol Succinate [Toprol XL -] 25 mg PO DAILY 09/13/17 Azithromycin [Zithromax -] 250 mg PO UTDICT #6 tab 05/03/18 COPD: No GI Disorders: Yes (ACID REFLUX) HTN: Yes - Surgical History Lung Surgery: Yes (SPONTANEOUS PNEUMO.) - Immunization History Immunization Up to Date: Yes - Suicide/Smoking/Psychosocial Hx Smoking Status: Yes Smoking History: Current every day smoker Have you smoked in the past 12 months: Yes Number of Cigarettes Smoked Daily: 30 Information on smoking cessation initiated: Yes 'Breaking Loose' booklet given: 06/21/16 Hx Alcohol Use: No Drug/Substance Use Hx: No Substance Use Type: None *Physical Exam - Vital Signs Last Vital Signs Temp Pulse Resp BP Pulse Ox 98.5 F 67 18 145/75 100 06/07/18 17:34 06/07/18 17:34 06/07/18 17:34 06/07/18 17:34 06/07/18 17:34 Medical Decision Making - Medical Decision Making A/P: 53 y/o female with hordeolum of right eye. Instructed the patient to apply hot compresses multiple times per day and f/u with Dr. Oshea within 2 weeks if no improvement in symptoms. The patient verbalizes understanding of all instructions, has no further questions and is awaiting discharge. *DC/Admit/Observation/Transfer Diagnosis at time of Disposition: Eye pain Qualifiers: Laterality: right Qualified Code(s): H57.11 - Ocular pain, right eye Hordeolum Qualifiers: Hordeolum type: externum Laterality: right Eyelid: lower Qualified Code(s): H00.012 - Hordeolum externum right lower eyelid - Discharge Dispostion Disposition: HOME Condition at time of disposition: Good - Referrals Referrals: Dedrick Oshea MD [Staff Physician] - 14 days - Patient Instructions Printed Discharge Instructions: DI for Hordeolum Additional Instructions: Discharge Instructions: -You have a stye -Apply warm compresses multiple times per day -Follow up with Dr. Oshea in 2 weeks if no improvement in symptoms - Post Discharge Activity
== END 2018-06-07 17:53 | disposition home or self-care (01) ==
LOC: JER 16:16
DX: H00.012 Hordeolum externum right lower eyelid (principal)
CPT/HCPCS: 99281-25

== ENCOUNTER 2018-09-16 07:10 | Day surgery (SDC) | payer OTHER ==
[2018-07-26 12:08] VITALS: BMI 22.6
[2018-09-16 08:54] VITALS: TEMP 97.7
[2018-09-16 10:07] VITALS: BP 124/76; PULSE 68
--- NOTE | 2018-09-17 18:25 | PATH ---
Surgical Pathology Report Patient Name: LEO POOLE [facility]. Rec. #: [id number] /Age/Gender: 1965 (Age: 53) / F Account: [id number] Location: U-ENDOSCOPY Taken: 09/16/2018 Received: 09/16/2018 Reported: 09/17/2018 Physicians: Ursula Momin M.D. Specimen(s) Received A: BX DUODENUM B: BX ANTRUM C: BX GE JUNCTION D: BX CECUM E: BX ILEUM F: RECTAL POLYPS Clinical History GERD, early satiety, history of colon polyp, colon cancer screening Postoperative diagnosis: GERD, hiatal hernia, gastritis, duodenitis, rectal polyps Final Diagnosis A. DUODENUM, BIOPSY: DUODENAL MUCOSA WITH MILD NONSPECIFIC CHRONIC DUODENITIS. NO HISTOLOGIC EVIDENCE OF CELIAC DISEASE. B. ANTRUM, BIOPSY: GASTRIC MUCOSA WITH REACTIVE GASTROPATHY. NEGATIVE FOR INTESTINAL METAPLASIA. IMMUNOSTAIN FOR H. PYLORI IS NEGATIVE. C. GE JUNCTION, BIOPSY: SQUAMOUS EPITHELIUM WITH REFLUX ESOPHAGITIS. NO HISTOLOGIC EVIDENCE OF EOSINOPHILIC ESOPHAGITIS. D. CECUM, BIOPSY: COLONIC MUCOSA WITH REACTIVE LYMPHOID FOLLICLE IN THE LAMINA PROPRIA. E. ILEUM, BIOPSY: ILEAL MUCOSA WITH REACTIVE LYMPHOID AGGREGATES. THE ARCHITECTURE OF THE VILLI APPEARS NORMAL. F. RECTAL POLYPS, POLYPECTOMY: HYPERPLASTIC POLYPS. Electronically Signed Viral Gutierrez M.D. Gross Description A. Received in formalin, labeled "biopsy second portion of duodenum and duodenal bulb" are 3 cook, irregular portions of soft tissue ranging from 0.4-0.5 cm. in greatest dimension. The specimens are submitted in toto in one cassette. B. Received in formalin, labeled "biopsy antrum" are 8 cook, irregular portions of soft tissue ranging from 0.2-0.4 cm. in greatest dimension. The specimens are submitted in toto in one cassette. C. Received in formalin, labeled "biopsy GE junction" are 3 cook, irregular portions of soft tissue ranging from 0.4-0.5 cm. in greatest dimension. The specimens are submitted in toto in one cassette. D. Received in formalin, labeled "biopsy cecum" are 2 cook, irregular portions of soft tissue averaging 0.3 cm. in greatest dimension. The specimens are submitted in toto in one cassette. E. Received in formalin, labeled "biopsy ileum" are 2 cook, irregular portions of soft tissue measuring 0.2 and 0.4 cm. in greatest dimension. The specimens are submitted in toto in one cassette. F. Received in formalin, labeled "biopsy rectal polyps" are 3 cook, irregular portions of soft tissue ranging from 0.2-0.4 cm. in greatest dimension. The specimens are submitted in toto in one cassette. 09/16/2018 [facility]/16/2018
== END 2018-09-16 10:07 | disposition home or self-care (01) ==
LOC: JASU-ENDO 07:10
PROVIDERS: ATTEND Internal Medicine Gastroenterology
PROC: 0DB98ZX Excision of Duodenum, Via Natural or Artificial Opening Endoscopic, Diagnostic (ICD-10-PCS; 2018-09-16)
PROC: 0DB68ZX Excision of Stomach, Via Natural or Artificial Opening Endoscopic, Diagnostic (ICD-10-PCS; 2018-09-16)
PROC: 0DB38ZX Excision of Lower Esophagus, Via Natural or Artificial Opening Endoscopic, Diagnostic (ICD-10-PCS; 2018-09-16)
PROC: 0DBP8ZX Excision of Rectum, Via Natural or Artificial Opening Endoscopic, Diagnostic (ICD-10-PCS; principal; 2018-09-16 08:00)
DX: Z12.11 Encounter for screening for malignant neoplasm of colon (principal); K62.1 Rectal polyp; K64.8 Other hemorrhoids; K63.89 Other specified diseases of intestine; K21.9 Gastro-esophageal reflux disease without esophagitis; K25.9 Gastric ulcer, unspecified as acute or chronic, without hemorrhage or perforation; K29.80 Duodenitis without bleeding; K29.60 Other gastritis without bleeding; K44.9 Diaphragmatic hernia without obstruction or gangrene
CPT/HCPCS: 88305-TC; 88342-TC

== ENCOUNTER 2021-04-20 05:22 | Day surgery (SDC) | payer OTHER ==
[2021-04-20 08:28] VITALS: BMI 20.8
[2021-04-20 09:35] VITALS: TEMP 98
[2021-04-20 10:00] VITALS: PULSE 52
[2021-04-20 10:21] VITALS: BP 119/66
== END 2021-04-20 10:21 | disposition home or self-care (01) ==
LOC: JASU-ENDO 05:22
PROVIDERS: ATTEND Internal Medicine Gastroenterology
PROC: 0DB78ZX Excision of Stomach, Pylorus, Via Natural or Artificial Opening Endoscopic, Diagnostic (ICD-10-PCS; 2021-04-20)
PROC: 0DB28ZX Excision of Middle Esophagus, Via Natural or Artificial Opening Endoscopic, Diagnostic (ICD-10-PCS; 2021-04-20)
PROC: 0DB38ZX Excision of Lower Esophagus, Via Natural or Artificial Opening Endoscopic, Diagnostic (ICD-10-PCS; 2021-04-20)
PROC: 0DB98ZX Excision of Duodenum, Via Natural or Artificial Opening Endoscopic, Diagnostic (ICD-10-PCS; principal; 2021-04-20 09:00)
DX: K29.50 Unspecified chronic gastritis without bleeding (principal); K21.9 Gastro-esophageal reflux disease without esophagitis; R13.10 Dysphagia, unspecified

== ENCOUNTER 2021-05-26 12:11 | Emergency (ER) | payer OTHER ==
[2021-05-26 12:54] VITALS: BP 117/78; PULSE 61; TEMP 98.1; BMI 21.5
== END 2021-05-26 13:12 | disposition home or self-care (01) ==
LOC: JERFT 12:11
DX: L03.114 Cellulitis of left upper limb (principal)
CPT/HCPCS: 73130-TC-LT-FY; 99281-25

== ENCOUNTER 2022-02-20 10:47 | Emergency (ER) | payer OTHER ==
[2022-02-20 11:21] VITALS: BP 119/73; PULSE 69; TEMP 98.2; BMI 20.7
== END 2022-02-20 11:33 | disposition home or self-care (01) ==
LOC: JERFT 10:47
DX: J01.90 Acute sinusitis, unspecified (principal); J06.9 Acute upper respiratory infection, unspecified; R05.1 Acute cough; R09.81 Nasal congestion
CPT/HCPCS: 99281-25